=== PATIENT | male | born 1980 | race Hispanic/Latino ===

== ENCOUNTER 2016-11-22 10:26 | Emergency (ER) | payer OTHER ==
[~2016-11-22] VITALS: Ht 165.1 cm; Wt 75.0 kg
[2016-11-22] MEDS ORDERED: METFORMIN500 MG PO (10:34)
[2016-11-22] MEDS ORDERED: KEFLEX500 M1 PO (10:48)
[2016-11-22 11:07] VITALS: BP 126/79
== END 2016-11-22 11:07 | disposition home or self-care (01) | DRG 605 ==
LOC: ED 10:26
PROC: 0HQDXZZ Repair Right Lower Arm Skin, External Approach (ICD-10-PCS; principal; 2016-11-22)
DX: S51.811A Laceration without foreign body of right forearm, initial encounter (principal); W26.0XXA Contact with knife, initial encounter; Y93.89 Activity, other specified; Y92.89 Other specified places as the place of occurrence of the external cause